=== PATIENT | female | born 1975 | race Hispanic/Latino ===

== ENCOUNTER 2018-03-25 18:44 | Emergency (ER) | payer BC ==
[2018-03-25 18:53] VITALS: RESP 18; BMI 27.0
--- NOTE | 2018-03-25 19:36 | ED PDOC ---
Arrival/HPI - General Chief Complaint: Lower Extremity Problem/Injury Time Seen by Provider: 03/25/18 19:14 Historian: Patient - History of Present Illness Narrative History of Present Illness (Text): 03/25/18 19:34 43-year-old female presents today with a 3 day history of right foot pain. Patient denies any trauma or injury. No medications have been taken for pain at home. Patient states that she has pain along the first metatarsal. Patient states she has pain with range of motion of the great toe. Patient denies numbness weakness or tingling in the extremity. Patient denies ankle pain. Denies calf pain. Patient states she has to wear sandals because it hurts if she wears closed shoes. No other complaints Past Medical History - Provider Review Nursing Documentation Reviewed: Yes - Travel History Have you recently traveled outside [place] w/in the past 3 mons?: No - Infectious Disease Hx of Infectious Diseases: None - Tetanus Immunization Tetanus Immunization: Unknown - Past Medical History Past Medical History: No Previous - Psychiatric Hx Depression: No Hx Emotional Abuse: No Hx Physical Abuse: No Hx Substance Use: No - Surgical History Other/Comment: Left Knee SURGERY. chaz feet surgery - Anesthesia Hx Anesthesia: Yes Hx Anesthesia Reactions: No Hx Malignant Hyperthermia: No - Suicidal Assessment Feels Threatened In Home Enviroment: No Family/Social History - Physician Review Nursing Documentation Reviewed: Yes Family/Social History: Unknown Family HX Smoking Status: Heavy Smoker > 10 Cigarettes Daily Hx Alcohol Use: Yes Frequency of alcohol use: Socially Hx Substance Use: No Allergies/Home Meds Allergies/Adverse Reactions: Allergies codeine Allergy (Verified 02/11/16 17:16) VOMITING Home Medications: Home Meds Medication Instructions Recorded Confirmed No Known Home Med 11/19/15 03/25/18 Review of Systems - Review of Systems Constitutional: absent: Fatigue, Fevers Respiratory: absent: SOB, Cough Cardiovascular: absent: Chest Pain, Palpitations Gastrointestinal: absent: Abdominal Pain, Nausea, Vomiting Genitourinary Female: absent: Dysuria Musculoskeletal: Arthralgias (right foot pain). absent: Back Pain, Neck Pain Skin: absent: Rash, Pruritis Neurological: absent: Headache, Dizziness Psychiatric: absent: Anxiety, Depression, Suicidal Ideation Physical Exam Vital Signs Reviewed: Yes Vital Signs Temp Pulse Resp BP Pulse Ox 03/25/18 18:49 99.1 F 87 18 110/74 99 Temperature: Afebrile Blood Pressure: Normal Pulse: Regular Respiratory Rate: Normal Appearance: Positive for: Well-Appearing, Non-Toxic, Comfortable Pain Distress: None Mental Status: Positive for: Alert and Oriented X 3 - Systems Exam Head: Present: Atraumatic Mouth: Present: Moist Mucous Membranes Neck: Present: Normal Range of Motion Respiratory/Chest: Present: Clear to Auscultation Cardiovascular: Present: Regular Rate and Rhythm Lower Extremity: Present: NORMAL PULSES, Tenderness (right foot; + ttp over the dorsal aspect of the foot at the 1st Metacarpal; limited rom of great toe with pain; no edema, no erythema. no ecchymosis; sensation and distal pulses intact. ), Neurovascularly Intact. No: CALF TENDERNESS, Swelling, Erythema, Deformity, Capillary Refill < 2 s Neurological: Present: GCS=15, Speech Normal, Motor Func Grossly Intact, Normal Sensory Function Skin: Present: Warm, Dry, Normal Color. No: Rashes Psychiatric: Present: Alert, Oriented x 3 Medical Decision Making ED Course and Treatment: 03/25/18 19:38 Patient nontoxic well-appearing in no distress with stable vital signs X-rays of the foot: no fracture, post surgical changes; no acute fracture Patient refused medications for pain Patient given crutches for ambulation. I discussed all results in depth with the patient advised to followup with the orthopedist/maintenance and engineering manager within the next 2 days. Return if symptoms worsen persist or new symptoms develop. Patient verbalizes understanding of discharge instructions and need for immediate followup. all aspects of this case were discussed the attending of record. Impression: Foot pain Motrin every 6 hours as needed for pain Rest, ice, compression, elevation Use crutches for ambulation Followup with the orthopedist within the next 2 days Followup with primary care physician within the next 2 days Return if symptoms worsen persist or if new symptoms develop - RAD Interpretation Radiology Orders: 03/25/18 19:22 FOOT RIGHT 3 VIEWS ROUTINE [RAD] Stat Disposition/Present on Arrival - Present on Arrival Any Indicators Present on Arrival: No History of DVT/PE: No History of Uncontrolled Diabetes: No Urinary Catheter: No History of Decub. Ulcer: No History Surgical Site Infection Following: None - Disposition Have Diagnosis and Disposition been Completed?: Yes Diagnosis: Foot pain Disposition: HOME/ ROUTINE Disposition Time: 20:21 Patient Plan: Discharge Condition: GOOD Discharge Instructions (ExitCare): Muscle and Bone Pain (DC) Additional Instructions: Motrin every 6 hours as needed for pain Rest, ice, compression, elevation Use crutches for ambulation Followup with the orthopedist within the next 2 days Followup with primary care physician within the next 2 days Return if symptoms worsen persist or if new symptoms develop Referrals: Marco Antonio Mcmahon MD [Primary Care Provider] - Follow up with primary Rd Dixon DPM [Staff Provider] - Follow up with primary Shivam Dalton DO [Staff Provider] - Follow up with primary Forms: [employer] (Honduran), WORK NOTE
[2018-03-25 20:30] VITALS: BP 108/69; PULSE 74; TEMP 98.7; O2SAT 100
--- NOTE | 2018-03-26 07:26 | RAD ---
Date of service: 03/25/2018 PROCEDURE: Right Foot Radiographs. HISTORY: right foot pain, over 1st metatarsal COMPARISON: None. FINDINGS: BONES: Previous osteotomy distal 1st metatarsal. No acute findings JOINTS: Normal. SOFT TISSUES: Normal. OTHER FINDINGS: None. IMPRESSION: No acute findings
== END 2018-03-25 20:23 | disposition home or self-care (01) ==
LOC: ED 18:44
DX: M79.671 Pain in right foot (principal)